=== PATIENT | female | born 1960 | race Caucasian/White ===

== ENCOUNTER → 2017-11-14 | Outpatient (CLI) | payer OTHER ==
[~2017-11-14] MED LIST: IBUPROFEN 800800 M1 PO
--- NOTE | 2017-11-14 17:11 | 2DMMODE ---
[place] [address] 2 D/M-MODE ECHOCARDIOGRAM Name: FABI ALMANZA Room: [facility]#: [id number] Admission: 11/14/17 Attend Phys: Diogo Gabriel, Discharge: Date of : 62 Date of Service: 11/14/17 1711 Report #: [id number] THIS REPORT FOR: //name// APPROVED REPORT Study performed: 11/14/2017 15:04:19 EXAM: Comprehensive 2D, Doppler, and color-flow Echocardiogram Patient Location: Out-Patient BSA: 2.43 HR: 92 bpm BP: 162/98 mmHg Other Information Study Quality: Adequate Indications Hypertension/HDD 2D Dimensions LVEF(%): 75.78 (>50%) IVSd: 10.72 (7-11mm) LVOT Diam: 20.40 (18-24mm) LVDd: 52.68 mm PWd: 9.01 (7-11mm) Ascending Ao: 31.93 (22-36mm) LVDs: 29.04 (25-40mm) Aortic Root: 24.86 mm Webb's LVEF: 75.78 % Volumes Left Atrial Volume (Systole) LA ESV Index: 20.40 mL/m2 Aortic Valve AoV Peak Feliciano.: 1.12 m/s AO Peak Gr.: 5.06 mmHg LVOT Max P.28 mmHg AO Mean Gr.: 3.14 mmHg LVOT Mean P.27 mmHg LVOT Max V: 0.75 m/s AO V2 VTI: 21.67 cm LVOT Mean V: 0.52 m/s MANAS (VTI): 2.36 cm2 LVOT V1 VTI: 15.67 cm Mitral Valve E/A Ratio: 2.06 MV Decel. Time: 184.40 ms MV E Max Feliciano.: 1.12 m/[place] [address] 2 D/M-MODE ECHOCARDIOGRAM Name: FABI ALMANZA Room: [facility]#: [id number] Admission: 11/14/17 Attend Phys: Diogo Gabriel, Discharge: Date of : 62 Date of Service: 11/14/17 1711 Report #: [id number] MV PHT: 53.48 ms MVA (PHT): 4.11 cm2 TDI E/Lateral E': 18.67 E/Medial E': 22.40 Medial E' Feliciano.: 0.05 m/s Lateral E' Feliciano.: 0.06 m/s Pulmonary Valve PV Peak Feliciano.: 0.91 m/s PV Peak Gr.: 3.34 mmHg Left Ventricle The left ventricle is normal size. There is normal LV segmental wall motion. There is normal left ventricular wall thickness. Left ventricular systolic function is normal. The left ventricular ejection fraction is within the normal range. LVEF is 55-60%. The left ventricular diastolic function is normal. Right Ventricle The right ventricle is normal size. The right ventricular systolic function is normal. Atria The left atrium size is normal. The right atrium size is normal. Aortic Valve The aortic valve is normal in structure. No aortic regurgitation is present. There is no aortic valvular stenosis. Mitral Valve The mitral valve is normal in structure. Trace mitral regurgitation. No evidence of mitral valve stenosis. Tricuspid Valve The tricuspid valve is normal in structure. There is no tricuspid valve regurgitation noted. Pulmonic Valve Pulmonic valve is not well visualized. There is no pulmonic valvular regurgitation. Great Vessels The aortic root is normal in size. IVC is normal in size and collapses with >50% [place] [address] 2 D/M-MODE ECHOCARDIOGRAM Name: FABI ALMANZA Room: [facility]#: [id number] Admission: 11/14/17 Attend Phys: Diogo Gabriel, Discharge: Date of : 62 Date of Service: 11/14/17 1711 Report #: [id number] Pericardium There is no pericardial effusion. <Conclusion> Left ventricular systolic function is normal. The left ventricular ejection fraction is within the normal range. <ELECTRONICALLY SIGNED> By: Walter Ross MD, FACC 11/14/171710 10 10 Walter Ross MD, FACC /INF
== END ==
LOC: M.CRD 14:36
DX: I10 Essential (primary) hypertension (principal)

== ENCOUNTER → 2018-01-22 | Outpatient (CLI) | payer OTHER ==
--- NOTE | 2018-01-22 16:44 | 2DMMODE ---
[place] [address] 2 D/M-MODE ECHOCARDIOGRAM Name: FABI ALMANZA Room: [facility]#: [id number] Admission: 01/22/18 Attend Phys: MARIE Aguayo Discharge: Date of : 62 Date of Service: 01/22/18 1644 Report #: [id number] THIS REPORT FOR: //name// APPROVED REPORT Study performed: 01/22/2018 15:09:40 EXAM: Comprehensive 2D, Doppler, and color-flow Echocardiogram Patient Location: Out-Patient Status: routine BSA: 2.29 HR: 90 bpm BP: 162/98 mmHg Other Information Study Quality: Adequate Indications Heart Failure Echo Enhancing Agent Indication: Endocardial border delineation Agent(s) / Amount(s) Used: Optison 10 cc 2D Dimensions LVEF(%): 55.48 (>50%) IVSd: 9.48 (7-11mm) LVOT Diam: 20.30 (18-24mm) LVDd: 55.32 mm PWd: 12.29 (7-11mm) Ascending Ao: 32.80 (22-36mm) LVDs: 39.15 (25-40mm) Aortic Root: 30.52 mm Webb's LVEF: 55.48 % Volumes Left Atrial Volume (Systole) LA ESV Index: 30.30 mL/m2 Aortic Valve AoV Peak Feliciano.: 1.16 m/s AO Peak Gr.: 5.39 mmHg LVOT Max P.79 mmHg AO Mean Gr.: 3.23 mmHg LVOT Mean P.02 mmHg LVOT Max V: 0.67 m/s AO V2 VTI: 23.47 cm LVOT Mean V: 0.47 m/s MANAS (VTI): 2.01 cm2 LVOT V1 VTI: 14.57 [place] [address] 2 D/M-MODE ECHOCARDIOGRAM Name: FABI ALMANZA Room: [facility]#: [id number] Admission: 01/22/18 Attend Phys: MARIE Aguayo Discharge: Date of : 62 Date of Service: 01/22/18 1644 Report #: [id number] Mitral Valve E/A Ratio: 1.78 MV Decel. Time: 184.40 ms MV E Max Feliciano.: 1.07 m/s MV PHT: 53.48 ms MVA (PHT): 4.11 cm2 TDI E/Lateral E': 13.38 E/Medial E': 17.83 Medial E' Feliciano.: 0.06 m/s Lateral E' Feliciano.: 0.08 m/s Pulmonary Valve PV Peak Feliciano.: 0.89 m/s PV Peak Gr.: 3.18 mmHg Left Ventricle The left ventricle is normal size. 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 There is normal left ventricular wall thickness. Left ventricular systolic function is normal. LVEF is 55-60%. The left ventricular diastolic function is normal. Right Ventricle The right ventricle is normal size. The right ventricular systolic function is normal. Atria The left atrium size is normal. The right atrium size is normal. Aortic Valve The aortic valve is normal in structure. No aortic regurgitation is present. There is no aortic valvular stenosis. Mitral Valve The mitral valve is normal in structure. There is no mitral valve regurgitation noted. No evidence of mitral valve stenosis. Tricuspid Valve The tricuspid valve is normal in structure. There is no tricuspid valve regurgitation noted. Pulmonic Valve The pulmonary valve is normal in structure. There is no [place]mon[place] [address] 2 D/M-MODE ECHOCARDIOGRAM Name: FABI ALMANZA Room: [facility]#: [id number] Admission: 01/22/18 Attend Phys: MARIE Aguayo Discharge: Date of : 62 Date of Service: 01/22/18 1644 Report #: [id number] Great Vessels The aortic root is normal in size. IVC is normal in size and collapses with >50% inspiration Pericardium There is no pericardial effusion. <Conclusion> The left ventricle is normal size. There is normal left ventricular wall thickness. Left ventricular systolic function is normal. LVEF is 55-60%. The left ventricular diastolic function is normal. 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 I would recommend cardiac MR to further delineate morphology of the left ventricle. <ELECTRONICALLY SIGNED> By: Diogo Gabriel MD, FACC 01/22/18 1644 164 1644 Diogo Gabriel MD, FACC /INF
== END ==
LOC: M.CRD 14:53
DX: I50.9 Heart failure, unspecified (principal)